=== PATIENT | female | born 1985 | race Caucasian/White ===

== ENCOUNTER 2017-05-09 16:20 | Emergency (ER) | payer OTHER ==
[~2017-05-09 16:20] MED LIST: ALBUTEROL17 GM INH; KEFLEX PO; MEDROL DOSEPAK4 MG PO; NO MEDICATIONS; PRENATAL MULITV1 TAB PO; TESSALON200 MG PO; ZITHROMAX1 G/PKT PO
[2017-05-09] MEDS ORDERED: MOTRIN PO (16:23)
== END 2017-05-09 17:05 | disposition home or self-care (01) ==
LOC: SED 16:20
DX: T63.441A Toxic effect of venom of bees, accidental (unintentional), initial encounter (principal); Y92.9 Unspecified place or not applicable; M41.9 Scoliosis, unspecified
CPT/HCPCS: 99282